=== PATIENT | female | born 1955 | race Native Hawaiian/Other Pacific Islander ===

== ENCOUNTER 2020-02-20 14:33 | Outpatient (CLI) | payer OTHER | END 2020-02-20 23:59 | disposition home or self-care (01) | LOC: US 14:33 | DX: R42 Dizziness and giddiness (principal) ==

== ENCOUNTER 2022-10-17 12:43 | Outpatient (CLI) | payer BC, OTHER | END 2022-10-17 20:37 | disposition home or self-care (01) | LOC: RAD 12:43 | PROVIDERS: ATTEND Nurse Practitioner Family | DX: D51.8 Other vitamin B12 deficiency anemias (principal); E55.9 Vitamin D deficiency, unspecified; M06.4 Inflammatory polyarthropathy; M62.81 Muscle weakness (generalized); M85.89 Other specified disorders of bone density and structure, multiple sites ==